=== PATIENT | female | born 1955 | race Caucasian/White ===

== ENCOUNTER 2017-06-15 16:40 | Emergency (ER) | payer SELFPAY ==
[2017-06-15 16:50] VITALS: BMI 34.0
[2017-06-15] MEDS ORDERED: ZOFRAN INJ 4 MG VIAL ONE (17:01)
[2017-06-15] MEDS ORDERED: MORPHINE SULFATE INJ 2 MG INJ ONE (17:02)
[2017-06-15] MEDS ORDERED: ROCEPHIN VIAL 2 GM ONE (17:04)
[2017-06-15] MEDS ORDERED: NS 100 ML IV 100 ML IV ONE (17:04)
[2017-06-15] MEDS ORDERED: MORPHINE SULFATE INJ 2 MG INJ IVP ONE (17:07)
--- NOTE | 2017-06-15 17:08 | DR.EXTPAIN ---
HPI - Time seen Time seen: 17:00 - PCP Primary Care Physician: REGAN PALMA - Complaint/Symptoms Chief Complaint Doctor Comments: Swelling and pain to left arm. This was noted since evening. She denies fever or chills. Here was an axillary boil noted that same day. She does shave her armpits and last shaving was 1 week ago. Chief Complaint:: PT C/O TAKING A SHOWER FRIDAY AND SHE NOTICED A KNOT TO HER LEFT AXILLA AREA..... Self Treatment fo Chief Complaint: MOTRIN, PT IS VERY TEARFUL ,, - Nurses notes reviewed Nurses Notes Review: Yes - Source History Provided: Patient - Mode of arrival Mode of Arrival: Ambulatory - Timing Onset of Chief Complaint: 06/12/17 - Context History of: None - Associated signs and symptoms Associated Signs and Symptoms: Swelling PMH - PMH Past Medical History: No Past Surgical History: Yes Surgical History: Angioplasty/Stents, Hysterectomy, Tonsillectomy Past Surgical History Comment: HYS, BILATERAL HEEL, RIGHT ANKLE SURGERY. - Family History History of Family Medical Conditions: Yes Family Medical History: Diabetes Mellitus, Cancer, [place] - Social History Does patient currently use any type of tobacco product: No Have you used tobacco products in the last 12 months: No Type of Tobacco Use: None Does any household member use tobacco: No Alcohol Use: None Do you use any recreational Drugs:: No Lives With: Family Lives Where: Home - infectious screening In the last 2 months have you had wt loss of >10#?: NO Have you had fever, night sweats or hemotysis?: No Have you traveled outside the country in the last 6 months?: No Isolation: Standard ROS - Review of Systems Constitutional: No Symptoms Reported Eyes: No Symptoms Reported ENTM: No Symptoms Reported Respiratoy: No Symptoms Reported Cardiovascular: No Symptoms Reported Gastrointestinal/Abdominal: No Symptoms Reported Genitourinary: No Symptoms Reported Neurological: No Symptoms Reported Musculoskeletal: No Symptoms Reported Integumentary: Other (erythema and pain to left armpit/arm area) Hematologic/Lymphatic: Lymphadenopathy (lt. axillary) Endocrine: No Symptoms Reported Psychiatric: No Symptoms Reported All Other Systems: Reviewed and Negative PE - Vital Signs Vitals: Temperature 98.6 F Pulse Rate 116 Respiratory Rate 18 Blood Pressure [Right Arm] 148/72 Blood Pressure 202/97 O2 Sat by Pulse Oximetry 98 - General Limitations: No Limitations General Appearance: Alert, Other (pain related distress) - Head Head Exam: Normal Inspection - Eyes Eye exam: Normal Appearance, PERRL, EOMI - ENT ENT Exam: Normal Exam - Neck Neck Exam: Normal Inspection, Full ROM, Trachea Midline - Chest Chest Inspection: Normal Inspection, Symmetric Chest Wall Rise - Respiratory Respiratory Exam: Normal Lung Sounds Bilat - Cardiovascular Cardiovascular Exam: Regular Rate, Normal Rhythm - Abdominal Exam Abdominal Exam: Normal Inspection, Normal Bowel Sounds, Soft - Extremities Extremities Exam: Normal Inspection, Full ROM - Back Back Exam: Normal Inspection - Neurological Neurological Exam: Alert, Oriented X3, CN II-XII Intact - Psychiatric Psychiatric Exam: Normal Affect, Normal Mood - Skin Skin Exam: Erythema (to left arm with associated tenderness) Type of Lesion: Other (furuncle in left axilla, it is firm and tender to touch. ) ROR - Labs Reviewed Result Diagrams: 06/15/17 17:11 06/15/17 17:11 Laboratory: WBC 16.5 X10^3/uL (3.6-10.0) H 06/15/17 17:11 RBC 5.37 X10^6/uL (3.5-5.4) 06/15/17 17:11 Hgb 16.0 g/dL (12.0-16.0) 06/15/17 17:11 Hct 46.2 % (36.0-47.0) 06/15/17 17:11 MCV 86.0 fL (80.0-100.0) 06/15/17 17:11 MCH 29.8 pg (27.0-34.0) 06/15/17 17:11 MCHC 34.6 g/dL (33.0-35.0) 06/15/17 17:11 RDW 13.8 % (11.6-16.5) 06/15/17 17:11 Plt Count 300 X10^3/uL (150.0-450.0) 06/15/17 17:11 MPV 8.3 fL (7.4-11.0) 06/15/17 17:11 Neut % 84.7 % (42.0-75.0) H 06/15/17 17:11 Lymph % 7.8 % (21.0-51.0) L 06/15/17 17:11 Mcleod % 6.5 % (0.0-13.0) 06/15/17 17:11 Eos % 0.5 % (0.9-2.9) L 06/15/17 17:11 Baso % 0.5 % (0.2-1.0) 06/15/17 17:11 Neut # 13.9 x10^3/uL (2.2-4.8) H 06/15/17 17:11 Lymph # 1.3 X10^3/uL (1.3-2.9) 06/15/17 17:11 Mcleod # 1.1 x10^3/uL (0.3-0.8) H 06/15/17 17:11 Eos # 0.1 x10^3/uL (0.0-0.2) 06/15/17 17:11 Baso # 0.1 X10^3/uL (0.0-0.1) 06/15/17 17:11 Absolute Nucleated RBC 0.0 /100WBC 06/15/17 17:11 Sodium 142 mmol/L (136-145) 06/15/17 17:11 Corrected Sodium 144 mmol/L (136-145) 06/15/17 17:11 Potassium 4.0 mmol/L (3.5-5.1) 06/15/17 17:11 Chloride 106 mmol/L (98-107) 06/15/17 17:11 Carbon Dioxide 26.4 mmol/L (21-32) 06/15/17 17:11 BUN 13 mg/dL (7-18) 06/15/17 17:11 Creatinine 1.26 mg/dL (0.55-1.02) H 06/15/17 17:11 Est GFR (MDRD) Af Amer 56 (>60) L 06/15/17 17:11 Est GFR (MDRD) Non-Af 46 (>60) L 06/15/17 17:11 Glucose 186 mg/dL (65-99) H 06/15/17 17:11 Calcium 9.5 mg/dL (8.5-10.1) 06/15/17 17:11 Corrected Calcium TNP 06/15/17 17:11 Total Bilirubin 0.60 mg/dL (0.2-1.0) 06/15/17 17:11 AST 27 Units/L (15-37) 06/15/17 17:11 ALT 52 Units/L (12-78) 06/15/17 17:11 Alkaline Phosphatase 106 Units/L (46-116) 06/15/17 17:11 Total Protein 8.0 g/dL (6.4-8.2) 06/15/17 17:11 Albumin 3.4 g/dL (3.4-5.0) 06/15/17 17:11 Globulin 4.6 g/dL (2.5-4.5) H 06/15/17 17:11 Albumin/Globulin Ratio 0.7 Ratio (1.1-2.1) L 06/15/17 17:11 - Diagnosis Discharge Problem: Cellulitis and abscess of upper arm and forearm, Furuncle of axilla - Discharge Plan Disposition: HOME, SELF-CARE Condition: Stable - Follow ups/Referrals Follow ups/Referrals: NFD,None [Primary Care Provider] - 3 days - Instructions
[2017-06-15 17:28] LABS: BASOPHILS # (AUTO) 0.1 X10^3/uL (0.0-0.1); BASOPHILS % (AUTO) 0.5 % (0.2-1.0); EOSINOPHILS # (AUTO) 0.1 x10^3/uL (0.0-0.2); EOSINOPHILS % (AUTO) 0.5 % (0.9-2.9); HEMATOCRIT 46.2 % (36.0-47.0); LYMPHOCYTES # (AUTO) 1.3 X10^3/uL (1.3-2.9); LYMPHOCYTES % (AUTO) 7.8 % (21.0-51.0); MEAN CORPUSCULAR HEMOGLOBIN 29.8 pg (27.0-34.0); MEAN CORPUSCULAR HGB CONC 34.6 g/dL (33.0-35.0); MEAN PLATELET VOLUME 8.3 fL (7.4-11.0); MONOCYTES # (AUTO) 1.1 x10^3/uL (0.3-0.8); MONOCYTES % (AUTO) 6.5 % (0.0-13.0); NEUTROPHILS # (AUTO) 13.9 x10^3/uL (2.2-4.8); NEUTROPHILS % (AUTO) 84.7 % (42.0-75.0); PLATELET COUNT 300 X10^3/uL (150.0-450.0); RED BLOOD COUNT 5.37 X10^6/uL (3.5-5.4); RED CELL DISTRIBUTION WIDTH 13.8 % (11.6-16.5); WHITE BLOOD COUNT 16.5 X10^3/uL (3.6-10.0)
[2017-06-15] MEDS ORDERED: ZOFRAN INJ 4 MG VIAL IVP ONE (17:28)
[2017-06-15 17:41] LABS: ALANINE AMINOTRANSFERASE 52 Units/L (12-78); ALBUMIN 3.4 g/dL (3.4-5.0); ALKALINE PHOSPHATASE 106 Units/L (46-116); ASPARTATE AMINO TRANSFERASE 27 Units/L (15-37); BLOOD UREA NITROGEN 13 mg/dL (7-18); CALCIUM 9.5 mg/dL (8.5-10.1); CARBON DIOXIDE 26.4 mmol/L (21-32); CHLORIDE 106 mmol/L (98-107); COR NA(FOR HYPERGLY) 144 mmol/L (136-145); CREATININE 1.26 mg/dL (0.55-1.02); SODIUM 142 mmol/L (136-145); eGFR BLACK RACES 56 (>60); eGFR NON BLACK RACES 46 (>60)
[2017-06-15 17:57] VITALS: BP 148/72
[2017-06-15] MEDS ORDERED: CLEOCIN ONE (18:44)
[2017-06-15] MEDS ORDERED: CLEOCIN PO ONE (18:45)
[2017-06-16] MEDS ORDERED: ROCEPHIN VIAL 2 GM 2 GM in NS 50 ML IV + SPIKE MINIBAG* 50 ML IV ONE (17:06)
== END 2017-06-15 18:39 | disposition home or self-care (01) ==
LOC: ER 16:57
DX: L03.114 Cellulitis of left upper limb (principal); L02.414 Cutaneous abscess of left upper limb; L02.422 Furuncle of left axilla
CPT/HCPCS: 36415; 80053; 85025; 87040; 96365; 96374; 96375; 99282; 99283; A4222; J0696; J2270; J2405